=== PATIENT | female | born 1935 | race Caucasian/White ===

== ENCOUNTER → 2020-12-18 | Day surgery (SDC) | payer OTHER ==
[~2020-12-18] VITALS: Ht 167.6 cm; Wt 55.8 kg
[~2020-12-18] MED LIST: 3IN1 COMMODE XX; AMOX TR-K CLV1 EAC4 PO; ASPIRIN CHEWABL81 MG PO; ATROVENT HFA12.9 GM INH; AZITHROMYCIN250 MG PO; BASAGLAR K100 UNIT/1 SC; BLOOD GLUCOSE1 EAC1 XX; BLOOD GLUCOSE1 EAC7 XX; BUMEX1 MG PO; CEFDINIR300 MG PO; CELEXA10 MG PO; CLEOCIN HCL300 MG PO; CRANBERRY200 MG PO; DIFLUCAN150 MG PO; DIGITEK125 MCG PO; DULERA 200 MCG8.8 GM INH; ELIQUIS2.5 MG PO; FEOSOL325 MG PO; FLEXERIL10 MG PO; FLEXERIL5 MG PO; FLONASE ALLER15.8 ML; FLORAJEN460 MG PO; FLOVENT HF120 PUFFS/ INH; FLUTICASONE P15.8 ML; HUMULIN R100 UNIT/2 SC; HYDROCODON-ACE1 EAC4 PO; HYDROCORTISO28.35 G1 TOP; KEFLEX250 MG PO; LACTINEX1 EACH PO; LASIX20 MG PO; LEVAQUIN500 MG PO; LEVEMIR VI100 UNITS/ SC; LOPRESSOR25 MG PO; LOPRESSOR50 MG PO; MEDROL 4MG DOSEP4 MG PO; MEDROL4 MG PO; METAXALONE800 MG PO; METFORMIN HCL500 MG PO; METOPROLOL SUCC; MICON-GUARD 2% TOP; NEEDLES1 EAC4 SC; NORCO 5-325 TA1 EACH PO; NORVASC2.5 MG PO; NORVASC5 MG PO; OLMESARTAN-HCT1 EAC2 PO; ONDANSETRON ODT4 MG PO; PEPCID AC20 MG PO; POTASSIUM CHLO10 ME1 PO; POTASSIUM CHLO10 MEQ PO; POTASSIUM CHLO20 ME2 PO; PREDNISONE 10MG10 MG PO; PREDNISONE 20MG20 MG PO; PROCTOZONE-HC 230 GM TOP; PROVENTIL HFA6.7 GM INH; SEREVENT DISKU50 MCG INH; SINGULAIR10 MG PO; SPIRIVA 185 PUFFS/IN INH; STOOL SOFTENER1 EACH PO; TAMSULOSIN HCL0.4 MG PO; TOPROL XL 50 MG50 MG PO; TOPROL XL100 MG PO; TRAMADOL HCL50 MG PO; TRELEGY ELLIPT1 EACH PO; ULTRA-LIGHT RO1 EACH XX; UROCIT-K10 MEQ PO; VALACYCLOVIR1000 MG PO; VALSARTAN-HCTZ1 EAC3 PO; VENTOLIN HFA IN18 GM INH; VIBRAMYCIN100 MG PO; XARELTO10 MG PO; ZOCOR20 MG PO; ZOFRAN4 M1 PO; [UNRECOGNIZED DRUG - OTHER] PO
[2020-12-18 07:48] LABS: BUN/CREAT RATIO (CALC) 30.7 RATIO; CREATININE 0.75 mg/dL (0.51-0.95); POTASSIUM 3.5 mmol/L (3.5-5.1)
--- NOTE | 2020-12-18 11:19 | NUR ---
JEANNE CAREGIVER CALLED TO INFORM OF TELEPHONE VISIT SET FOR 12/30 @ 11:30 AND TO HAVE WILLIE RESUME ELIQUIS 12/19
== END | disposition home or self-care (01) ==
LOC: FAS 06:48
PROVIDERS: Surgery
DX: Z45.2 Encounter for adjustment and management of vascular access device (principal); I48.91 Unspecified atrial fibrillation; I87.2 Venous insufficiency (chronic) (peripheral); I27.21 Secondary pulmonary arterial hypertension; I12.9 Hypertensive chronic kidney disease with stage 1 through stage 4 chronic kidney disease, or unspecified chronic kidney disease; I83.893 Varicose veins of bilateral lower extremities with other complications; N18.30 Chronic kidney disease, stage 3 unspecified; K21.9 Gastro-esophageal reflux disease without esophagitis; J30.9 Allergic rhinitis, unspecified; J44.9 Chronic obstructive pulmonary disease, unspecified; G47.33 Obstructive sleep apnea (adult) (pediatric); E78.5 Hyperlipidemia, unspecified; E11.9 Type 2 diabetes mellitus without complications; M10.9 Gout, unspecified; M81.0 Age-related osteoporosis without current pathological fracture; Z20.822 Contact with and (suspected) exposure to COVID-19; Z95.0 Presence of cardiac pacemaker; Z95.828 Presence of other vascular implants and grafts; Z78.0 Asymptomatic menopausal state; Z90.710 Acquired absence of both cervix and uterus; Z88.1 Allergy status to other antibiotic agents; Z88.5 Allergy status to narcotic agent; Z88.8 Allergy status to other drugs, medicaments and biological substances; Z79.01 Long term (current) use of anticoagulants; Z90.49 Acquired absence of other specified parts of digestive tract
CPT/HCPCS: 36415; 80048; 82962; J2405; J2704; J3010; J7120

== ENCOUNTER 2021-01-28 02:43 | Emergency (ER) | payer OTHER ==
[~2021-01-28 02:43] MED LIST changes: -CEFDINIR300 MG PO; -KEFLEX250 MG PO; -MEDROL4 MG PO; -ONDANSETRON ODT4 MG PO; -PROCTOZONE-HC 230 GM TOP; -TRELEGY ELLIPT1 EACH PO; -ZOFRAN4 M1 PO; -[UNRECOGNIZED DRUG - OTHER] PO
[2021-01-28 03:37] LABS: BASOPHIL 0.6 % (0-2); EOSINOPHIL 12.8 % (0-7); HCT 33.5 % (37.0-47.0); HGB 11.1 g/dl (12.5-16.0); LYMPHOCYTE 8.8 % (15-48); MCH 31.3 pg (25.0-31.0); MCHC 33.1 g/dL (32.0-36.0); MCV 94.4 fL (78.0-100.0); MONOCYTE 8.3 % (0-12); MPV 9.8 fL (6.0-9.5); NRBC 0; PLT 191 K/uL (150-400); RBC 3.55 M/uL (4.20-5.40); RDW 12.4 % (11.5-14.0); WBC 7.7 K/uL (4.0-10.5)
[2021-01-28 03:48] LABS: INR 1.26 (0.9-1.2); PTT 29.3 SECONDS (22.2-34.7)
[2021-01-28 03:59] LABS: IRON % SATURATION 13.6 %SAT (20-50)
[2021-01-28 04:09] LABS: LACTIC ACID 1.1 mmol/L (0.4-1.9)
[2021-01-28 04:11] LABS: ALBUMIN 3.3 g/dL (3.4-5.0); BILIRUBIN - TOTAL 0.3 mg/dL (0.2-1.0); BUN/CREAT RATIO (CALC) 27.6 RATIO; C-REACTIVE PROTEIN 1.3 mg/dL (<=0.90); CREATININE 0.76 mg/dL (0.51-0.95); GLOBULIN (CALCULATION) 3.8 g/dL; MAGNESIUM 1.6 mg/dL (1.8-2.4); POTASSIUM 3.4 mmol/L (3.5-5.1); TOTAL PROTEIN 7.1 g/dL (6.4-8.2)
[2021-01-28 04:22] LABS: FLU B NEGATIVE B (NEGATIVE B)
[2021-01-28] MEDS ORDERED: ZOFRAN4 M1 PO (06:06)
[2021-05-26] MEDS ORDERED: ELIQUIS2.5 MG PO (04:06)
[2021-05-26] MEDS ORDERED: K-DUR20 MEQ PO (04:09)
== END 2021-01-28 10:05 | disposition home or self-care (01) ==
LOC: FER 02:43
PROVIDERS: Emergency Medicine
DX: R11.2 Nausea with vomiting, unspecified (principal); R06.02 Shortness of breath; R00.0 Tachycardia, unspecified; T50.B95A Adverse effect of other viral vaccines, initial encounter; J44.9 Chronic obstructive pulmonary disease, unspecified; I10 Essential (primary) hypertension; Z98.890 Other specified postprocedural states; Z79.01 Long term (current) use of anticoagulants; Z79.899 Other long term (current) drug therapy; Y92.9 Unspecified place or not applicable
CPT/HCPCS: 36415; 71250; 80053; 80162; 82728; 83540; 83550; 83605; 83615; 83735; 83880; 84145; 84484; 85025; 85610; 85730; 86140; 87040; 87804; 87899; 93005

== ENCOUNTER 2021-03-17 01:13 | Day surgery (SDCO) | payer OTHER ==
[~2021-03-17] VITALS: Ht 170.2 cm; Wt 60.0 kg
[~2021-03-17 01:13] MED LIST changes: +ZOFRAN4 M1 PO
[2021-03-17 02:49] LABS: BASOPHIL 1.4 % (0-2); EOSINOPHIL 6.4 % (0-7); HCT 34.5 % (37.0-47.0); HGB 11.4 g/dl (12.5-16.0); LYMPHOCYTE 14.3 % (15-48); MCH 31.1 pg (25.0-31.0); MCV 94.3 fL (78.0-100.0); MONOCYTE 9.6 % (0-12); MPV 10.7 fL (6.0-9.5); NRBC 0; PLT 214 K/uL (150-400); RBC 3.66 M/uL (4.20-5.40); RDW 13.2 % (11.5-14.0); WBC 5.7 K/uL (4.0-10.5)
[2021-03-17 02:59] LABS: ALBUMIN 3.5 g/dL (3.4-5.0); BILIRUBIN - TOTAL 0.2 mg/dL (0.2-1.0); BUN/CREAT RATIO (CALC) 19.8 RATIO; CREATININE 0.81 mg/dL (0.51-0.95); GLOBULIN (CALCULATION) 3.9 g/dL; POTASSIUM 3.5 mmol/L (3.5-5.1); TOTAL PROTEIN 7.4 g/dL (6.4-8.2)
[2021-03-17 03:26] LABS: INR 1.28 (0.9-1.2); PROTHROMBIN TIME 15.2 SECONDS (11.4-13.6)
[2021-03-17] MEDS ORDERED: BUMEX1 MG PO (09:38)
[2021-03-17] MEDS ORDERED: NORVASC2.5 MG PO (09:38)
[2021-03-17] MEDS ORDERED: PROCTOZONE-HC 230 GM TOP (09:39)
[2021-03-17] MEDS ORDERED: DIGITEK125 MCG PO (09:39)
[2021-03-17] MEDS ORDERED: CELEXA10 MG PO (09:39)
[2021-03-17] MEDS ORDERED: [UNRECOGNIZED DRUG - OTHER] PO (09:40)
[2021-03-17] MEDS ORDERED: TRELEGY ELLIPT1 EACH PO (09:41)
[2021-03-17] MEDS ORDERED: ATROVENT HFA12.9 GM INH (09:41)
[2021-03-17] MEDS ORDERED: ZOCOR20 MG PO (09:42)
[2021-03-17] MEDS ORDERED: KEFLEX250 MG PO (09:42)
[2021-03-17] MEDS ORDERED: ONDANSETRON ODT4 MG PO (09:43)
[2021-03-17] MEDS ORDERED: MEDROL4 MG PO (09:44)
[2021-03-17] MEDS ORDERED: CEFDINIR300 MG PO (09:45)
[2021-03-18] MEDS ORDERED: PREDNISONE 20MG20 MG PO (11:48)
--- NOTE | 2021-03-18 15:09 | NUR ---
03/18/21 Ms. Oneill is . She lives alone. However, she has 2 caregivers who come to the home daily. Ms. Oneill has been followed by [facility] in the past. They are not current. Ms. Oneill doesn't believe HH services are needed at discharge. She has an emergency alert system, osvaldo gibbs, chely, 3in1, and s. chair. Ms. Oneill has been going to [facility] Outpatient Therapy.
== END 2021-03-18 13:36 | disposition home or self-care (01) ==
LOC: FER 01:13 → FTCU 06:48
PROVIDERS: Emergency Medicine; ADMIT Internal Medicine
DX: J44.1 Chronic obstructive pulmonary disease with (acute) exacerbation (principal); J18.9 Pneumonia, unspecified organism; I21.A1 Myocardial infarction type 2; I48.0 Paroxysmal atrial fibrillation; I10 Essential (primary) hypertension; E78.5 Hyperlipidemia, unspecified; I45.10 Unspecified right bundle-branch block; I25.10 Atherosclerotic heart disease of native coronary artery without angina pectoris; I27.20 Pulmonary hypertension, unspecified; I08.3 Combined rheumatic disorders of mitral, aortic and tricuspid valves; Z86.16 Personal history of COVID-19; Z86.718 Personal history of other venous thrombosis and embolism; Z79.01 Long term (current) use of anticoagulants; Z79.899 Other long term (current) drug therapy; Z88.1 Allergy status to other antibiotic agents; Z88.3 Allergy status to other anti-infective agents; Z88.5 Allergy status to narcotic agent; Z95.0 Presence of cardiac pacemaker; Z20.822 Contact with and (suspected) exposure to COVID-19
CPT/HCPCS: 36415; 71045; 71275; 80053; 83880; 84484; 85025; 85379; 85610; 85730; 93005; 94640; 94664; G0378; J1644; J7512; Q9967; U0002

== ENCOUNTER 2021-05-24 13:54 | Emergency (ER) | payer OTHER ==
[~2021-05-24 13:54] MED LIST changes: +CEFDINIR300 MG PO; +KEFLEX250 MG PO; +MEDROL4 MG PO; +ONDANSETRON ODT4 MG PO; +PROCTOZONE-HC 230 GM TOP; +TRELEGY ELLIPT1 EACH PO; +[UNRECOGNIZED DRUG - OTHER] PO
[2021-05-24 14:41] LABS: BASOPHIL 1.2 % (0-2); EOSINOPHIL 10.6 % (0-7); HCT 37.3 % (37.0-47.0); HGB 12.2 g/dl (12.5-16.0); LYMPHOCYTE 18.2 % (15-48); MCH 30.4 pg (25.0-31.0); MCHC 32.7 g/dL (32.0-36.0); NEUTROPHIL 61.5 % (41-80); NRBC 0; PLT 190 K/uL (150-400); RBC 4.01 M/uL (4.20-5.40); RDW 13.2 % (11.5-14.0)
[2021-05-24 15:00] LABS: ALBUMIN 3.3 g/dL (3.4-5.0); BILIRUBIN - TOTAL 0.3 mg/dL (0.2-1.0); BUN/CREAT RATIO (CALC) 16.7 RATIO; CREATININE 0.9 mg/dL (0.51-0.95); GLOBULIN (CALCULATION) 3.4 g/dL; POTASSIUM 3.3 mmol/L (3.5-5.1); TOTAL PROTEIN 6.7 g/dL (6.4-8.2)
[2021-05-24 15:25] LABS: CORONAVIRUS 2019 SARS-COV-2 NEGATIVE (NEGATIVE); INFLUENZA A NAA NEGATIVE (NEGATIVE)
[2021-05-24 16:36] LABS: BILIRUBIN NEGATIVE (NEGATIVE); BLOOD TRACE-INTACT Ery/uL (NEGATIVE); CLARITY CLEAR (CLEAR); COLOR YELLOW (YELLOW); GLUCOSE (U) NORMAL (NORMAL); LEUKOCYTES NEGATIVE Leu/uL (NEGATIVE); NITRITE NEGATIVE (NEGATIVE); PROTEIN NEGATIVE (NEGATIVE); UROBILINOGEN 0.2 mg/dL (0.2-1.0); pH 6.5 (5.0-9.0)
[2021-05-24] MEDS ORDERED: MEDROL 4MG DOSEP4 MG PO (16:38)
[2021-05-24] MEDS ORDERED: ZPAK PO (16:38)
[2021-05-24 16:45] LABS: BACTERIA TRACE
[2021-05-26] MEDS ORDERED: ELIQUIS2.5 MG PO (04:06)
[2021-05-26] MEDS ORDERED: K-DUR20 MEQ PO (04:09)
== END 2021-05-24 18:24 | disposition home or self-care (01) ==
LOC: FER 13:54
PROVIDERS: Nurse Practitioner Family
DX: J18.9 Pneumonia, unspecified organism (principal); I48.91 Unspecified atrial fibrillation; I10 Essential (primary) hypertension; J44.9 Chronic obstructive pulmonary disease, unspecified; Z88.1 Allergy status to other antibiotic agents; Z88.5 Allergy status to narcotic agent; Z88.2 Allergy status to sulfonamides; Z20.822 Contact with and (suspected) exposure to COVID-19
CPT/HCPCS: 36415; 71045; 80053; 81001; 83605; 83880; 84145; 84484; 85025; 87040; 93005; 94640; 94664; J0456; J0696; J2930; J7050; U0002

== ENCOUNTER 2021-05-26 20:23 | Inpatient (IN) | payer OTHER ==
[~2021-05-26] VITALS: Ht 170.2 cm; Wt 61.2 kg
[~2021-05-26 20:23] MED LIST changes: +K-DUR20 MEQ PO; +ZPAK PO
[2021-05-26 21:44] LABS: BASOPHIL 0.1 % (0-2); EOSINOPHIL 0 % (0-7); HCT 36.5 % (37.0-47.0); HGB 11.8 g/dl (12.5-16.0); LYMPHOCYTE 5.5 % (15-48); MCH 30.3 pg (25.0-31.0); MCHC 32.3 g/dL (32.0-36.0); MCV 93.8 fL (78.0-100.0); MONOCYTE 4.1 % (0-12); MPV 10.6 fL (6.0-9.5); NRBC 0; PLT 223 K/uL (150-400); RBC 3.89 M/uL (4.20-5.40); RDW 13.4 % (11.5-14.0); WBC 9.7 K/uL (4.0-10.5)
[2021-05-26 22:00] LABS: ALBUMIN 3.9 g/dL (3.4-5.0); BILIRUBIN - TOTAL 0.3 mg/dL (0.2-1.0); BUN/CREAT RATIO (CALC) 28.2 RATIO; CREATININE 0.85 mg/dL (0.51-0.95); GLOBULIN (CALCULATION) 3.2 g/dL; POTASSIUM 4.2 mmol/L (3.5-5.1); TOTAL PROTEIN 7.1 g/dL (6.4-8.2)
[2021-05-26 22:03] LABS: INR 1.22 (0.9-1.2); PROTHROMBIN TIME 14.8 SECONDS (11.8-13.4); PTT 25.9 SECONDS (24.4-34.7)
[2021-05-26 22:10] LABS: LACTIC ACID 2.4 mmol/L (0.4-1.9)
[2021-05-26 23:50] LABS: BILIRUBIN NEGATIVE (NEGATIVE); BLOOD 1+ Ery/uL (NEGATIVE); CLARITY CLEAR (CLEAR); COLOR YELLOW (YELLOW); GLUCOSE (U) NORMAL (NORMAL); LEUKOCYTES 1+ Leu/uL (NEGATIVE); NITRITE NEGATIVE (NEGATIVE); PROTEIN NEGATIVE (NEGATIVE); SPECIFIC GRAVITY <=1.005 (1.001-1.030); UROBILINOGEN 0.2 mg/dL (0.2-1.0)
[2021-05-26 23:59] LABS: BACTERIA TRACE
[2021-05-27] LABS: SQUAMOUS EPITHELIAL CELLS RARE
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
[2021-05-27] MEDS ORDERED: FLEXERIL5 MG PO (04:03)
[2021-05-27] MEDS ORDERED: FEOSOL325 MG PO (04:07)
[2021-05-27] MEDS ORDERED: ATROVENT HFA12.9 GM INH (04:07)
[2021-05-27] MEDS ORDERED: DULERA 200 MCG8.8 GM INH (04:09)
[2021-05-27] MEDS ORDERED: SPIRIVA 185 PUFFS/IN INH (04:10)
[2021-05-27] MEDS ORDERED: TRELEGY ELLIPT1 EACH INH (04:11)
--- NOTE | 2021-05-27 04:15 | NUR ---
LAB CALLED TO NOTIFY ME THAT SPUTUM COLLECTED EARLIER IN ED IS NOT A GOOD SPECIMEN. WILL TRY AND COLLECT NEW SPECIMEN AFTER DISCUSSING WITH CABLE SPLICING TECHNICIAN.
--- NOTE | 2021-05-27 05:24 | NUR ---
AROUND 0455 PT. CALLED OUT STATING THAT SHE WAS HAVING TROUBLE BREATHING. UPON ASSESSMENT, PT. APPEARED DIAPHORETIC, FLUSHED TO THE FACE, AND IN DISTRESS. RN SAT THE PT. UP ON THE SIDE OF THE BED AND CALLED RT FOR PRN ALBUTEROL TX. PT. O2 SAT WAS IN THE LOW TO MID 90'S AT THIS TIME. PT. QUICKLY STARTING TO RECOVER WITH POSITIONING AND MEDICATIONS. FLOOR DIRECTOR NOTIFIED OF SITUATION AND WAS TOLD HE WOULD BE UPDATED.
--- NOTE | 2021-05-27 05:35 | NUR ---
AROUND 0525 PT. CALLED OUT SAYING THAT SHE HAD TO VOMIT. SHE IS ALSO C/O BACK PAIN. ZOFRAN WAS GIVEN ORDERED. PT. DID VOMIT SMALL AMOUNT (20CC) OF CLEAR FROTHY EMESIS. PT EXPRESSED THAT SHE THOUGHT SOMETHING WAS WRONG WITH THE MULTITUDE OF SYMPTOMS SHE IS HAVING AT ONCE. LONG TERM WAS CALLED AND HE CAME AND ASSESSED THE PT. PT. HAS ALSO BEEN HAVING DIARRHEA SHE IS AFRAID IT MAY BE CDIFF DUE TO THE FACT THAT SHE HAS BEEN ON NUMEROUS ABX FOR "AGES". ER,RN
--- NOTE | 2021-05-27 06:41 | NUR ---
EDUCATED PT. ON IMPORTANCE OF KEEPING O2 ON DESPITE THE DISCOMFORT. PEDORTHIST NOTIFIED THAT PT. SATS ARE 88-90% ON 2L. WAITING FOR LABS TO COME BACK AT THIS TIME.
[2021-05-27 07:07] LABS: HCT 40.7 % (37.0-47.0); HGB 12.8 g/dl (12.5-16.0); MCH 29.5 pg (25.0-31.0); MCHC 31.4 g/dL (32.0-36.0); MCV 93.8 fL (78.0-100.0); MPV 10.7 fL (6.0-9.5); RBC 4.34 M/uL (4.20-5.40); RDW 13.4 % (11.5-14.0)
[2021-05-27 07:16] LABS: BUN/CREAT RATIO (CALC) 25.9 RATIO; CREATININE 0.81 mg/dL (0.51-0.95); MAGNESIUM 1.8 mg/dL (1.8-2.4); PHOSPHORUS 3.1 mg/dL (2.6-4.7); POTASSIUM 3.6 mmol/L (3.5-5.1)
[2021-05-27 07:20] LABS: WBC 1.3 K/uL (4.0-10.5)
[2021-05-27 07:30] LABS: CKMB 3.4 ng/mL (0.0-3.6)
[2021-05-27] MEDS ORDERED: NORVASC2.5 MG PO (09:38)
[2021-05-27] MEDS ORDERED: BUMEX1 MG PO (09:38)
[2021-05-27] MEDS ORDERED: CELEXA10 MG PO (09:39)
[2021-05-27] MEDS ORDERED: DIGITEK125 MCG PO (09:39)
--- NOTE | 2021-05-27 15:59 | NUR ---
05/27/21 Ms. Oneill lives alone. She has a 2 caretakers and is looking for a 3rd. Her POA is Monica Bob, [phone]. She goes to Outpatient PT at [facility]. She has home 02, rw, emergency alert system, 3in1, and s. chair. Ms. Oneill is not interested in services. She has had [facility] in the past.
[2021-05-28 06:39] LABS: BASOPHIL 0.2 % (0-2); BUN/CREAT RATIO (CALC) 26.7 RATIO; CREATININE 0.86 mg/dL (0.51-0.95); EOSINOPHIL 0.1 % (0-7); HCT 34.4 % (37.0-47.0); HGB 11.3 g/dl (12.5-16.0); LYMPHOCYTE 2.8 % (15-48); MCH 30.5 pg (25.0-31.0); MCHC 32.8 g/dL (32.0-36.0); MCV 92.7 fL (78.0-100.0); MONOCYTE 5.7 % (0-12); MPV 10.4 fL (6.0-9.5); NEUTROPHIL 90.6 % (41-80); NRBC 0.2; PLT 139 K/uL (150-400); POTASSIUM 3.7 mmol/L (3.5-5.1); RBC 3.71 M/uL (4.20-5.40); RDW 13.7 % (11.5-14.0)
[2021-05-28 06:40] LABS: WBC 10.4 K/uL (4.0-10.5)
--- NOTE | 2021-05-29 01:27 | NUR ---
PT C/O DIFFICULTY BREATHING RT NOTIFIED AND PT ASSISTED TO CHAIR AND USING ACAPELLA . O2 SATS MONITORED PER MONITOR AT THIS TIME.
[2021-05-31 09:26] LABS: EOSINOPHIL 0.5 % (0-7); HCT 40.3 % (37.0-47.0); HGB 13.5 g/dl (12.5-16.0); LYMPHOCYTE 6.3 % (15-48); MCHC 33.5 g/dL (32.0-36.0); MCV 89.6 fL (78.0-100.0); MONOCYTE 6.1 % (0-12); MPV 10.8 fL (6.0-9.5); NEUTROPHIL 79.9 % (41-80); NRBC 0; PLT 206 K/uL (150-400); RDW 12.7 % (11.5-14.0); WBC 8.4 K/uL (4.0-10.5)
[2021-05-31 09:41] LABS: BUN/CREAT RATIO (CALC) 38.2 RATIO; CREATININE 0.68 mg/dL (0.51-0.95); POTASSIUM 3.5 mmol/L (3.5-5.1)
[2021-05-31] MEDS ORDERED: PREDNISONE 20MG20 MG PO (14:12)
== END 2021-05-31 15:53 | disposition home or self-care (01) | DRG 190 ==
LOC: FER 20:23 → FMS 05-27
PROVIDERS: Emergency Medicine Emergency Medical Services; Internal Medicine; Nurse Practitioner; ADMIT Internal Medicine
PROC: 2W1LX6Z Compression of Right Lower Extremity using Pressure Dressing (ICD-10-PCS; principal; 2021-05-25)
DX: J44.1 Chronic obstructive pulmonary disease with (acute) exacerbation (principal); I21.A1 Myocardial infarction type 2; I48.0 Paroxysmal atrial fibrillation; R13.10 Dysphagia, unspecified; Z20.822 Contact with and (suspected) exposure to COVID-19; E11.9 Type 2 diabetes mellitus without complications; I10 Essential (primary) hypertension; K21.9 Gastro-esophageal reflux disease without esophagitis; I25.10 Atherosclerotic heart disease of native coronary artery without angina pectoris; Z86.718 Personal history of other venous thrombosis and embolism; Z95.0 Presence of cardiac pacemaker; Z90.89 Acquired absence of other organs; Z90.710 Acquired absence of both cervix and uterus; Z88.5 Allergy status to narcotic agent; Z88.1 Allergy status to other antibiotic agents; Z88.8 Allergy status to other drugs, medicaments and biological substances; Z79.01 Long term (current) use of anticoagulants; Z79.52 Long term (current) use of systemic steroids; Z79.899 Other long term (current) drug therapy
CPT/HCPCS: 36415; 36600; 71045; 71275; 74230; 76642-RT; 77063; 77067; 80048; 80053; 80162; 81001; 82553; 82803; 83605; 83735; 83880; 84100; 84145; 84484; 85025; 85379; 85610; 85730; 87040; 87070; 87088; 87205; 92526; 92611; 93005; 94640; 94664; 94668; 94760; J0456; J0696; J1940; J2405; J2543; J2930; J7030; J7050; Q9967; U0002

== ENCOUNTER 2021-07-09 00:18 | Emergency (ER) | payer OTHER ==
[~2021-07-09 00:18] MED LIST changes: +TRELEGY ELLIPT1 EACH INH
[2021-07-09 01:27] LABS: BASOPHIL 1.1 % (0-2); EOSINOPHIL 9.3 % (0-7); HGB 11.6 g/dl (12.5-16.0); MCH 31.1 pg (25.0-31.0); MCHC 33.1 g/dL (32.0-36.0); MCV 93.8 fL (78.0-100.0); MPV 10.4 fL (6.0-9.5); NEUTROPHIL 70.1 % (41-80); NRBC 0; PLT 213 K/uL (150-400); RBC 3.73 M/uL (4.20-5.40); RDW 13.9 % (11.5-14.0); WBC 10.9 K/uL (4.0-10.5)
[2021-07-09 01:46] LABS: ALBUMIN 3.4 g/dL (3.4-5.0); BILIRUBIN - TOTAL 0.6 mg/dL (0.2-1.0); CREATININE 0.88 mg/dL (0.51-0.95); GLOBULIN (CALCULATION) 3.5 g/dL; POTASSIUM 3.1 mmol/L (3.5-5.1); TOTAL PROTEIN 6.9 g/dL (6.4-8.2)
[2021-07-09] MEDS ORDERED: LASIX20 MG PO (04:38)
[2021-07-09] MEDS ORDERED: K-DUR20 MEQ PO (04:38)
== END 2021-07-09 07:50 | disposition home or self-care (01) ==
LOC: FER 00:18
PROVIDERS: Internal Medicine
DX: J44.1 Chronic obstructive pulmonary disease with (acute) exacerbation (principal); I11.0 Hypertensive heart disease with heart failure; I50.9 Heart failure, unspecified; R77.8 Other specified abnormalities of plasma proteins; E87.6 Hypokalemia; D64.9 Anemia, unspecified; I48.91 Unspecified atrial fibrillation; Z20.822 Contact with and (suspected) exposure to COVID-19
CPT/HCPCS: 36415; 71045; 80053; 83880; 84145; 84484; 85025; 93005; U0002

== ENCOUNTER 2021-08-05 07:27 | Emergency (ER) | payer OTHER ==
[2021-08-05 08:16] LABS: EOSINOPHIL 15.8 % (0-7); HCT 37.9 % (37.0-47.0); HGB 12.3 g/dl (12.5-16.0); LYMPHOCYTE 21.5 % (15-48); MCH 31.4 pg (25.0-31.0); MCHC 32.5 g/dL (32.0-36.0); MCV 96.7 fL (78.0-100.0); MONOCYTE 10.2 % (0-12); MPV 10.2 fL (6.0-9.5); NEUTROPHIL 51.2 % (41-80); NRBC 0; PLT 205 K/uL (150-400); RBC 3.92 M/uL (4.20-5.40); RDW 13.4 % (11.5-14.0); WBC 6.9 K/uL (4.0-10.5)
[2021-08-05 08:33] LABS: ALBUMIN 3.4 g/dL (3.4-5.0); BILIRUBIN - TOTAL 0.4 mg/dL (0.2-1.0); BUN/CREAT RATIO (CALC) 14.5 RATIO; CREATININE 0.69 mg/dL (0.51-0.95); GLOBULIN (CALCULATION) 3.3 g/dL; POTASSIUM 4.2 mmol/L (3.5-5.1); TOTAL PROTEIN 6.7 g/dL (6.4-8.2)
[2021-08-05 09:07] LABS: CORONAVIRUS 2019 SARS-COV-2 NEGATIVE (NEGATIVE); INFLUENZA A NAA NEGATIVE (NEGATIVE)
[2021-08-05] MEDS ORDERED: AZITHROMYCIN250 MG PO (10:13)
[2021-08-05] MEDS ORDERED: CEFPODOXIME PR200 MG PO (10:13)
[2021-08-05] MEDS ORDERED: PREDNISONE 20MG20 MG PO (10:35)
[2021-08-06] MEDS ORDERED: PREDNISONE 20MG20 MG PO (12:34)
[2021-08-06] MEDS ORDERED: AZITHROMYCIN250 MG PO (12:34)
[2021-08-06] MEDS ORDERED: ELIQUIS2.5 MG PO (12:38)
[2021-08-06] MEDS ORDERED: TOPROL XL 25MG25 MG PO (12:39)
[2021-08-06] MEDS ORDERED: DUONEB 2.5-0.5M1 AMP INH (12:40)
[2021-08-06] MEDS ORDERED: LASIX20 MG PO (13:26)
== END 2021-08-05 11:05 | disposition home or self-care (01) ==
LOC: FER 07:27
PROVIDERS: Internal Medicine
DX: J96.01 Acute respiratory failure with hypoxia (principal); J44.1 Chronic obstructive pulmonary disease with (acute) exacerbation; J18.9 Pneumonia, unspecified organism; I48.91 Unspecified atrial fibrillation; I10 Essential (primary) hypertension; E11.9 Type 2 diabetes mellitus without complications; Z88.2 Allergy status to sulfonamides; Z88.1 Allergy status to other antibiotic agents; Z79.01 Long term (current) use of anticoagulants; Z20.822 Contact with and (suspected) exposure to COVID-19
CPT/HCPCS: 36415; 36600; 71045; 80053; 82803; 83880; 84145; 84484; 85025; 93005; 94640; 94664; J0696; J2930; U0002

== ENCOUNTER 2021-08-05 16:37 | Inpatient (IN) | payer OTHER ==
[~2021-08-05] VITALS: Ht 165.1 cm; Wt 57.9 kg
[~2021-08-05 16:37] MED LIST changes: +CEFPODOXIME PR200 MG PO
[2021-08-05 18:37] LABS: BASOPHIL 0.3 % (0-2); EOSINOPHIL 0.5 % (0-7); HCT 34.8 % (37.0-47.0); HGB 11.4 g/dl (12.5-16.0); LYMPHOCYTE 7.3 % (15-48); MCH 31.2 pg (25.0-31.0); MCHC 32.8 g/dL (32.0-36.0); MCV 95.3 fL (78.0-100.0); MONOCYTE 1.6 % (0-12); MPV 10.5 fL (6.0-9.5); NRBC 0; PLT 195 K/uL (150-400); RBC 3.65 M/uL (4.20-5.40); RDW 13.2 % (11.5-14.0); WBC 3.9 K/uL (4.0-10.5)
[2021-08-05 19:03] LABS: ALBUMIN 3.2 g/dL (3.4-5.0); BILIRUBIN - TOTAL 0.3 mg/dL (0.2-1.0); BUN/CREAT RATIO (CALC) 19.5 RATIO; CREATININE 0.77 mg/dL (0.51-0.95); GLOBULIN (CALCULATION) 3.8 g/dL; POTASSIUM 4.1 mmol/L (3.5-5.1)
[2021-08-05 19:19] LABS: BILIRUBIN NEGATIVE (NEGATIVE); BLOOD 2+ Ery/uL (NEGATIVE); COLOR YELLOW (YELLOW); GLUCOSE (U) NORMAL (NORMAL); LEUKOCYTES 2+ Leu/uL (NEGATIVE); NITRITE NEGATIVE (NEGATIVE); PROTEIN TRACE (LOW) mg/dL (NEGATIVE); UROBILINOGEN 0.2 mg/dL (0.2-1.0)
[2021-08-05 19:21] LABS: CLARITY SLIGHTLY HAZY (CLEAR)
[2021-08-05 19:25] LABS: BACTERIA 2+; URINARY WBC 20-50
[2021-08-05 19:26] LABS: SQUAMOUS EPITHELIAL CELLS RARE
[2021-08-06] MEDS ORDERED: PREDNISONE 20MG20 MG PO (12:34)
[2021-08-06] MEDS ORDERED: AZITHROMYCIN250 MG PO (12:34)
[2021-08-06] MEDS ORDERED: ELIQUIS2.5 MG PO (12:38)
[2021-08-06] MEDS ORDERED: TOPROL XL 25MG25 MG PO (12:39)
[2021-08-06] MEDS ORDERED: DUONEB 2.5-0.5M1 AMP INH (12:40)
--- NOTE | 2021-08-06 12:55 | NUR ---
PATIENT WITH HR IN 150'S, NO S/S SOA, ST ON MONITOR, CALL TO DR MARIE REQUEST EKG. ORDER FOR NO EKG BUT TO GIVE LOPRESSOR 5MG IV X1 NOW WHICH WAS GIVEN AND HR STARTING TO DECREASE IN LOW 100'S
[2021-08-06] MEDS ORDERED: LASIX20 MG PO (13:26)
--- NOTE | 2021-08-06 13:54 | NUR ---
PATIENT RESTLESS WITH HR 147, SOA AND C/O HOT. 148/72, O2 SAT 95% 2L N/C. RAPID CALLED DUE TO SOA, HR. ORDER FOR LOPRESSOR 5MG IV WHICH WAS GIVEN, PATIENT LESS SOA AND LESS RESTLESS, 137/76, P-105, O2 SAT 96%, MONITOR SHOWING AFIB AT THIS TIME AND PRIOR TO LOPRESSOR
--- NOTE | 2021-08-06 15:45 | NUR ---
08/06/21 Ms. Oneill lives at home with 24 hour caregivers. She goes to [facility] for outpatient Pt and wishes to continue at discharge. Ms. Oneill has home 02, rw, emergency alert system, 3in1, and s. chair.
--- NOTE | 2021-08-06 15:55 | NUR ---
PATIENT CALLING OUT FOR HELP, AID IN ROOM TO ASSIST PATIENT WHO HAS HER O2 OFF AND VERY RESTLESS, ANXIOUS, AND EXHIBITING SIGNS OF AIR HUNGER EVEN AFTER O2 APPLIED. O2 STARTING AT 77%. PATIENT PUT ON 50% VENTI AND RT CALLED TO EVAL AND SUPPORT PATIENT NEEDS WELL. O2 GRADUALLY INCREASING BUT PATIENT DISPLAYING AIR HUNGER UNTIL SATS REACHED 88%. LUNGS RALES AND TIGHT WHEEZES. MD INFORMED OF ALL OF ABOVE WELL PANIC TROP OF 0.376 WITH ORDERS FOR LOPRESSOR ORDERED AND WILL TRANSFER TO TCU FOR A CARDIZEM DRIP. PATIENT O2 SAT 93% NOW WITH VENTI
[2021-08-07 06:31] LABS: BASOPHIL 0.1 % (0-2); EOSINOPHIL 0 % (0-7); HCT 33.9 % (37.0-47.0); HGB 11.1 g/dl (12.5-16.0); LYMPHOCYTE 6.6 % (15-48); MCH 31.3 pg (25.0-31.0); MCHC 32.7 g/dL (32.0-36.0); MCV 95.5 fL (78.0-100.0); MONOCYTE 2.5 % (0-12); MPV 10.1 fL (6.0-9.5); NRBC 0; PLT 197 K/uL (150-400); RBC 3.55 M/uL (4.20-5.40); RDW 13.4 % (11.5-14.0)
[2021-08-07 06:32] LABS: NEUTROPHIL 90.1 % (41-80); WBC 8.5 K/uL (4.0-10.5)
[2021-08-07 07:09] LABS: BUN/CREAT RATIO (CALC) 27.3 RATIO; CREATININE 0.66 mg/dL (0.51-0.95); POTASSIUM 3.8 mmol/L (3.5-5.1)
[2021-08-08 04:10] LABS: BASOPHIL 0.1 % (0-2); EOSINOPHIL 0 % (0-7); HCT 37.4 % (37.0-47.0); HGB 12.2 g/dl (12.5-16.0); LYMPHOCYTE 6.7 % (15-48); MCHC 32.6 g/dL (32.0-36.0); MCV 94.9 fL (78.0-100.0); MONOCYTE 3.2 % (0-12); MPV 10.2 fL (6.0-9.5); NEUTROPHIL 88.8 % (41-80); NRBC 0; PLT 215 K/uL (150-400); RBC 3.94 M/uL (4.20-5.40); RDW 13.2 % (11.5-14.0); WBC 7.3 K/uL (4.0-10.5)
[2021-08-08 04:36] LABS: BUN/CREAT RATIO (CALC) 34.2 RATIO; CREATININE 0.73 mg/dL (0.51-0.95); MAGNESIUM 2.1 mg/dL (1.8-2.4); POTASSIUM 3.8 mmol/L (3.5-5.1)
--- NOTE | 2021-08-09 18:33 | NUR ---
1630 PT HEART RATE ON MONITOR READS 140'S NOEL VELAZCO WENT AND CHECKED ON PATIENT. PT WAS COUGHING AND STATED THAT SHE HAS CHOKED ON SOME OF HER DINNER. PT HEART RATE RETURNED TO 80-90'S MD MARIE WAS NOTIFIED NO NEW ORDERS A THIS TIME 1730 PT HEART RATE RETURNED TO 140'S AND THEN WENT BACKDOWN TO 90'S MD MARIE NOTIFIED AGAIN STATES THAT THE FLUCTUATION WAS NORMAL FOR PATIENT, NO NEW ORDERS AT THIS TIME
--- NOTE | 2021-08-10 16:09 | NUR ---
08/10/21 Deborah Temple, caregiver, reports home 02 to be at 4 L. A report was given to Dr. West.
[2021-08-11 06:25] LABS: BASOPHIL 0.5 % (0-2); EOSINOPHIL 0 % (0-7); HCT 38.3 % (37.0-47.0); LYMPHOCYTE 7.6 % (15-48); MCH 31.2 pg (25.0-31.0); MCHC 33.9 g/dL (32.0-36.0); MCV 91.8 fL (78.0-100.0); MONOCYTE 6.1 % (0-12); MPV 10.8 fL (6.0-9.5); NEUTROPHIL 82.9 % (41-80); NRBC 0; PLT 251 K/uL (150-400); RBC 4.17 M/uL (4.20-5.40); RDW 12.6 % (11.5-14.0); WBC 9.4 K/uL (4.0-10.5)
[2021-08-11 07:08] LABS: BUN/CREAT RATIO (CALC) 51.4 RATIO; CREATININE 0.72 mg/dL (0.51-0.95); POTASSIUM 3.7 mmol/L (3.5-5.1)
--- NOTE | 2021-08-11 11:08 | NUR ---
RD visited patient to discuss ONS (TwoCal) to be included in daily regimen. Explained consistency is favorable to nectar thick restrictions. Requested to contact her caregiver Deborah to provide this information; Patient agreed to allow RD to call. RD phone call to Deborah to discuss goals for consumption of this ONS, small amounts TID with meds: goal is to daily gradually increase amts to maximize intake. Pt is reluctant to ONS per past history; compliance has been a challenge.
[2021-08-11] MEDS ORDERED: TOPROL XL 50 MG50 MG PO (17:31)
[2021-08-11] MEDS ORDERED: PREDNISONE 20MG20 MG PO (17:31)
[2021-08-12 07:33] LABS: BASOPHIL 0.4 % (0-2); EOSINOPHIL 0.7 % (0-7); HCT 40.6 % (37.0-47.0); HGB 13.8 g/dl (12.5-16.0); LYMPHOCYTE 12.7 % (15-48); MCH 31.2 pg (25.0-31.0); MCV 91.9 fL (78.0-100.0); MONOCYTE 8.7 % (0-12); MPV 10.1 fL (6.0-9.5); NEUTROPHIL 74.7 % (41-80); NRBC 0; PLT 250 K/uL (150-400); RBC 4.42 M/uL (4.20-5.40); RDW 12.7 % (11.5-14.0)
[2021-08-12 08:09] LABS: BUN/CREAT RATIO (CALC) 50.7 RATIO; CREATININE 0.71 mg/dL (0.51-0.95); POTASSIUM 3.8 mmol/L (3.5-5.1)
--- NOTE | 2021-08-12 10:07 | NUR ---
08/12/21 Yoko Nails with [facility] telephoned to report; they had a HH referral on the from RENETTA Fry, and were scheduled to see Ms. Oneill on 08/08/21. The fore mentioned was discussed with Ms. Oneill. She did agreed to [facility]. - A report was given to Dr. Marinelli and BOLIVAR CaceresU RN.
--- NOTE | 2021-08-12 10:19 | NUR ---
PT DISCHARGED WITH [facility] AND 16/05 [facility]. PERSON TO NOTIFY JEANNE HAS ARRANGED TRANSPORTATION FROM THE HOSPITAL BACK TO PT HOME TODAY. PT WAS PICKED UP AT 1015. ALL BELONGINGS ON PERSON WHEN DISCHARGED VIA WHEELCHAIR.
== END 2021-08-12 10:15 | disposition home health service (06) | DRG 280 ==
LOC: FER 16:37 → FTCU 23:34 → FOFB 23:34 → FMS 23:34 → FOFB 23:34 → FMS 08-06 08:13 → FTCU 08-06 16:01
PROVIDERS: Internal Medicine; ADMIT Internal Medicine
DX: I48.0 Paroxysmal atrial fibrillation (principal); I50.33 Acute on chronic diastolic (congestive) heart failure; I21.A1 Myocardial infarction type 2; G93.41 Metabolic encephalopathy; J44.1 Chronic obstructive pulmonary disease with (acute) exacerbation; Z20.822 Contact with and (suspected) exposure to COVID-19; I11.0 Hypertensive heart disease with heart failure; K21.9 Gastro-esophageal reflux disease without esophagitis; E11.65 Type 2 diabetes mellitus with hyperglycemia; I34.0 Nonrheumatic mitral (valve) insufficiency; I27.20 Pulmonary hypertension, unspecified; F41.9 Anxiety disorder, unspecified; I25.10 Atherosclerotic heart disease of native coronary artery without angina pectoris; I10 Essential (primary) hypertension; I49.5 Sick sinus syndrome; Z86.16 Personal history of COVID-19; Z87.440 Personal history of urinary (tract) infections; Z86.718 Personal history of other venous thrombosis and embolism; Z90.710 Acquired absence of both cervix and uterus; Z90.89 Acquired absence of other organs; Z95.0 Presence of cardiac pacemaker; Z98.890 Other specified postprocedural states; Z79.01 Long term (current) use of anticoagulants; Z79.899 Other long term (current) drug therapy; Z82.3 Family history of stroke; Z82.49 Family history of ischemic heart disease and other diseases of the circulatory system; Z88.5 Allergy status to narcotic agent; Z88.1 Allergy status to other antibiotic agents
CPT/HCPCS: 36415; 36600; 71275; 80048; 80053; 81001; 82803; 83036; 83735; 83880; 84484; 85025; 87076; 87088; 87186; 87449; 93005; 94640; 96365; 96375; 97162; 97166; 97530-GP; 97535; J0696; J2060; J2405; J2920; J7512; Q9967

== ENCOUNTER 2021-10-01 20:50 | Inpatient (IN) | payer OTHER ==
[~2021-10-01] VITALS: Ht 167.6 cm; Wt 57.0 kg
[~2021-10-01 20:50] MED LIST changes: +DUONEB 2.5-0.5M1 AMP INH; +TOPROL XL 25MG25 MG PO
[2021-10-01 21:28] LABS: BASOPHIL 1.1 % (0-2); HCT 38.9 % (37.0-47.0); HGB 12.6 g/dl (12.5-16.0); LYMPHOCYTE 24.9 % (15-48); MCH 31.3 pg (25.0-31.0); MCHC 32.4 g/dL (32.0-36.0); MCV 96.8 fL (78.0-100.0); MONOCYTE 8.9 % (0-12); MPV 10.6 fL (6.0-9.5); NEUTROPHIL 41.4 % (41-80); NRBC 0; PLT 224 K/uL (150-400); RBC 4.02 M/uL (4.20-5.40); RDW 12.8 % (11.5-14.0)
[2021-10-01 21:29] LABS: EOSINOPHIL 23.2 % (0-7); WBC 10.3 K/uL (4.0-10.5)
[2021-10-01 21:32] LABS: INR 1.24 (0.9-1.2); PROTHROMBIN TIME 14.9 SECONDS (11.8-13.4); PTT 26.2 SECONDS (24.4-34.7)
[2021-10-01 21:49] LABS: LACTIC ACID 5.6 mmol/L (0.4-1.9)
[2021-10-01 21:52] LABS: ALBUMIN 3.7 g/dL (3.4-5.0); BILIRUBIN - TOTAL 0.3 mg/dL (0.2-1.0); BUN/CREAT RATIO (CALC) 22.7 RATIO; CREATININE 0.75 mg/dL (0.51-0.95); POTASSIUM 3.1 mmol/L (3.5-5.1); TOTAL PROTEIN 7.7 g/dL (6.4-8.2)
[2021-10-01 22:21] LABS: CORONAVIRUS 2019 SARS-COV-2 NEGATIVE (NEGATIVE); INFLUENZA A NAA NEGATIVE (NEGATIVE)
[2021-10-02 05:54] LABS: BASOPHIL 0.2 % (0-2); EOSINOPHIL 0.5 % (0-7); HCT 38.2 % (37.0-47.0); LYMPHOCYTE 2.9 % (15-48); MCH 30.6 pg (25.0-31.0); MCHC 31.4 g/dL (32.0-36.0); MCV 97.4 fL (78.0-100.0); MONOCYTE 3.5 % (0-12); NRBC 0; PLT 200 K/uL (150-400); RBC 3.92 M/uL (4.20-5.40); RDW 13.1 % (11.5-14.0); WBC 8.3 K/uL (4.0-10.5)
[2021-10-02 05:59] LABS: NEUTROPHIL 92.3 % (41-80)
[2021-10-02 06:38] LABS: BUN/CREAT RATIO (CALC) 23.1 RATIO; CREATININE 0.78 mg/dL (0.51-0.95); MAGNESIUM 3.3 mg/dL (1.8-2.4); POTASSIUM 3.2 mmol/L (3.5-5.1)
--- NOTE | 2021-10-02 14:54 | NUR ---
10/02 Ms. Oneill lives at home with 24 hour caregivers. [facility] is current and have been notified via [facility] of admission. Ms. Oneill has 02 at 4 L, emergency alert system, 3in1, and s. chair.
[2021-10-03 04:27] LABS: BASOPHIL 0.2 % (0-2); EOSINOPHIL 0.1 % (0-7); HCT 33.9 % (37.0-47.0); LYMPHOCYTE 3.7 % (15-48); MCH 31.1 pg (25.0-31.0); MCHC 32.4 g/dL (32.0-36.0); MCV 95.8 fL (78.0-100.0); MONOCYTE 3.4 % (0-12); NRBC 0; PLT 182 K/uL (150-400); RBC 3.54 M/uL (4.20-5.40); RDW 13.2 % (11.5-14.0); WBC 10.2 K/uL (4.0-10.5)
[2021-10-03 04:50] LABS: BUN/CREAT RATIO (CALC) 27.1 RATIO; CREATININE 0.7 mg/dL (0.51-0.95); POTASSIUM 4.1 mmol/L (3.5-5.1)
[2021-10-03 04:51] LABS: MAGNESIUM 2.3 mg/dL (1.8-2.4)
[2021-10-05 04:34] LABS: BASOPHIL 0.1 % (0-2); EOSINOPHIL 0 % (0-7); HGB 11.7 g/dl (12.5-16.0); LYMPHOCYTE 6.4 % (15-48); MCHC 31.6 g/dL (32.0-36.0); MCV 97.9 fL (78.0-100.0); MONOCYTE 3.6 % (0-12); NEUTROPHIL 89.2 % (41-80); NRBC 0; PLT 195 K/uL (150-400); RBC 3.78 M/uL (4.20-5.40); RDW 13.2 % (11.5-14.0); WBC 6.7 K/uL (4.0-10.5)
[2021-10-05 04:58] LABS: BUN/CREAT RATIO (CALC) 52.1 RATIO; CREATININE 0.71 mg/dL (0.51-0.95); MAGNESIUM 2.4 mg/dL (1.8-2.4); POTASSIUM 4.2 mmol/L (3.5-5.1)
[2021-10-05 09:49] LABS: BILIRUBIN NEGATIVE (NEGATIVE); BLOOD 3+ Ery/uL (NEGATIVE); CLARITY CLEAR (CLEAR); COLOR YELLOW (YELLOW); GLUCOSE (U) NORMAL (NORMAL); LEUKOCYTES NEGATIVE Leu/uL (NEGATIVE); NITRITE NEGATIVE (NEGATIVE); PROTEIN 3+ mg/dL (NEGATIVE); SPECIFIC GRAVITY >=1.030 (1.001-1.030); UROBILINOGEN 0.2 mg/dL (0.2-1.0)
[2021-10-05 10:01] LABS: BACTERIA TRACE; SQUAMOUS EPITHELIAL CELLS RARE
[2021-10-07 06:47] LABS: BASOPHIL 0.1 % (0-2); EOSINOPHIL 0 % (0-7); HGB 13.4 g/dl (12.5-16.0); LYMPHOCYTE 5.9 % (15-48); MCH 30.7 pg (25.0-31.0); MCHC 31.9 g/dL (32.0-36.0); MCV 96.3 fL (78.0-100.0); MONOCYTE 2.9 % (0-12); MPV 11.1 fL (6.0-9.5); NEUTROPHIL 90.4 % (41-80); NRBC 0; PLT 273 K/uL (150-400); RBC 4.36 M/uL (4.20-5.40); RDW 13.2 % (11.5-14.0); WBC 9.1 K/uL (4.0-10.5)
[2021-10-07 08:06] LABS: BUN/CREAT RATIO (CALC) 54.9 RATIO; CREATININE 0.82 mg/dL (0.51-0.95); MAGNESIUM 2.5 mg/dL (1.8-2.4); POTASSIUM 5.1 mmol/L (3.5-5.1)
--- NOTE | 2021-10-07 10:08 | NUR ---
10/07 [facility] verified, home 02 is ordered at 2 L. - A voicemail has been left for CURT Oconnell, [phone], to inquire if the POA is a DPOA to include medical decision making.
--- NOTE | 2021-10-08 05:10 | NUR ---
PT REFUSES TO GET IN BED AT THIS TIME; THEREFORE, AM UNABLE TO OBTAIN WEIGHT AT THIS TIME. WILL TRY AGAIN PRIOR TO END OF SHIFT AND/OR PASS ALONG IN REPORT PRN.
[2021-10-08 08:09] LABS: BUN/CREAT RATIO (CALC) 54.4 RATIO; CREATININE 0.9 mg/dL (0.51-0.95); POTASSIUM 4.8 mmol/L (3.5-5.1)
--- NOTE | 2021-10-08 15:02 | NUR ---
10/08/21 [facility] was notified of discharge.
--- NOTE | 2021-10-08 16:32 | NUR ---
NORTH REMOVED PER ORDER
== END 2021-10-08 16:50 | disposition home health service (06) | DRG 280 ==
LOC: FER 20:50 → FTCU 10-02 01:26 → FMS 10-07 22:28
PROVIDERS: Emergency Medicine; Internal Medicine; Nurse Practitioner; ADMIT Internal Medicine
PROC: 5A09357 Assistance with Respiratory Ventilation, Less than 24 Consecutive Hours, Continuous Positive Airway Pressure (ICD-10-PCS; principal; 2021-10-02)
DX: I11.0 Hypertensive heart disease with heart failure (principal); J96.21 Acute and chronic respiratory failure with hypoxia; I21.A1 Myocardial infarction type 2; G93.41 Metabolic encephalopathy; I50.23 Acute on chronic systolic (congestive) heart failure; J96.22 Acute and chronic respiratory failure with hypercapnia; J44.1 Chronic obstructive pulmonary disease with (acute) exacerbation; N17.9 Acute kidney failure, unspecified; Z20.822 Contact with and (suspected) exposure to COVID-19; Z51.5 Encounter for palliative care; Z66 Do not resuscitate; F03.90 Unspecified dementia, unspecified severity, without behavioral disturbance, psychotic disturbance, mood disturbance, and anxiety; I48.0 Paroxysmal atrial fibrillation; I49.5 Sick sinus syndrome; E11.9 Type 2 diabetes mellitus without complications; K21.9 Gastro-esophageal reflux disease without esophagitis; E03.9 Hypothyroidism, unspecified; F31.9 Bipolar disorder, unspecified; E87.6 Hypokalemia; E66.9 Obesity, unspecified; E11.65 Type 2 diabetes mellitus with hyperglycemia; Z95.0 Presence of cardiac pacemaker; Z79.01 Long term (current) use of anticoagulants; Z90.89 Acquired absence of other organs; Z90.710 Acquired absence of both cervix and uterus; Z79.899 Other long term (current) drug therapy; Z90.49 Acquired absence of other specified parts of digestive tract; Z98.890 Other specified postprocedural states; Z82.49 Family history of ischemic heart disease and other diseases of the circulatory system; Z79.82 Long term (current) use of aspirin; Z79.84 Long term (current) use of oral hypoglycemic drugs; Z79.4 Long term (current) use of insulin; Z79.890 Hormone replacement therapy; Z86.16 Personal history of COVID-19; Z87.440 Personal history of urinary (tract) infections; Z88.5 Allergy status to narcotic agent; Z88.1 Allergy status to other antibiotic agents; Z88.8 Allergy status to other drugs, medicaments and biological substances
CPT/HCPCS: 36415; 36600; 71045; 71250; 80048; 80053; 81001; 82803; 82962; 83036; 83605; 83735; 83880; 84145; 84484; 85025; 85610; 85730; 87040; 87088; 93005; 94640; 94664; 97162; 97166; 97530-GP; 97535; J0696; J2270; J2405; J2543; J2930; J3010; J3370; J3475; J3480; J7050; J7120; U0002

== ENCOUNTER 2021-11-12 04:45 | Emergency (ER) | payer OTHER ==
[2021-11-12] MEDS ORDERED: TRAZODONE 100M100 MG PO (05:12)
[2021-11-12 05:58] LABS: ALBUMIN 3.4 g/dL (3.4-5.0); BILIRUBIN - TOTAL 0.2 mg/dL (0.2-1.0); BUN/CREAT RATIO (CALC) 17.5 RATIO; CREATININE 0.8 mg/dL (0.51-0.95); GLOBULIN (CALCULATION) 3.6 g/dL; POTASSIUM 3.4 mmol/L (3.5-5.1)
[2021-11-12 06:00] LABS: BASOPHIL 1.2 % (0-2); EOSINOPHIL 12.6 % (0-7); HCT 38.7 % (37.0-47.0); HGB 11.9 g/dl (12.5-16.0); MCH 30.4 pg (25.0-31.0); MCHC 30.7 g/dL (32.0-36.0); MCV 98.7 fL (78.0-100.0); MONOCYTE 7.4 % (0-12); MPV 11.1 fL (6.0-9.5); NEUTROPHIL 64.6 % (41-80); NRBC 0; PLT 198 K/uL (150-400); RBC 3.92 M/uL (4.20-5.40); RDW 12.9 % (11.5-14.0); WBC 8.4 K/uL (4.0-10.5)
[2021-11-12 06:12] LABS: LACTIC ACID 1.3 mmol/L (0.4-1.9)
[2021-11-12 06:35] LABS: BILIRUBIN NEGATIVE (NEGATIVE); BLOOD 2+ Ery/uL (NEGATIVE); CLARITY CLEAR (CLEAR); COLOR YELLOW (YELLOW); GLUCOSE (U) NORMAL (NORMAL); LEUKOCYTES NEGATIVE Leu/uL (NEGATIVE); NITRITE NEGATIVE (NEGATIVE); PROTEIN NEGATIVE (NEGATIVE); UROBILINOGEN 0.2 mg/dL (0.2-1.0)
--- NOTE | 2021-11-12 18:20 | NUR ---
11/12/21 Monica Bob, [phone], POA / Health Care Surrogate has requested Hospice services. A referral was made to Katia Mcmullen, Passenger Coach Driver. Ms. Mcmullen will inform ED tonight of the status of the referral. Report given to Chester, ED RN and ED clinic charge nurse.
[2021-11-13] MEDS ORDERED: AZITHROMYCIN250 MG PO (07:13)
== END 2021-11-13 09:00 | disposition home or self-care (01) ==
LOC: FER 04:45
PROVIDERS: Emergency Medicine Emergency Medical Services
DX: J44.1 Chronic obstructive pulmonary disease with (acute) exacerbation (principal); I50.9 Heart failure, unspecified; I25.10 Atherosclerotic heart disease of native coronary artery without angina pectoris; Z20.822 Contact with and (suspected) exposure to COVID-19; Z95.0 Presence of cardiac pacemaker; Z99.81 Dependence on supplemental oxygen
CPT/HCPCS: 36415; 36600; 71045; 80053; 80162; 81001; 82803; 83605; 83880; 84145; 84484; 85025; 87040; 87088; 93005; 96365; 96366; 96367; 96375; J0456; J0696; J2060; J2930; J7050; U0002